=== PATIENT | male | born 1955 | race African-American/Black ===

== ENCOUNTER → 2019-11-14 | Day surgery (SDC) | payer MEDICARE, MEDICAID ==
[2019-11-11 09:42] LABS: BASOPHILS % (AUTO) 2.9 % (0.0-2.0); EOSINOPHILS % (AUTO) 3.3 % (0.0-3.0); HEMATOCRIT 45.7 % (42.0-52.0); HEMOGLOBIN 14.6 G/DL (14.2-18.0); LYMPHOCYTES % (AUTO) 36.8 % (20.0-45.0); MEAN CORPUSCULAR VOLUME 88 FL (80-99); MONOCYTES % (AUTO) 7.6 % (1.0-10.0); NEUTROPHILS % (AUTO) 49.4 % (45.0-75.0); PLATELET COUNT 340 K/UL (150-450); RED BLOOD COUNT 5.17 M/UL (4.70-6.10); RED CELL DISTRIBUTION WIDTH 12.7 % (11.6-14.8); WHITE BLOOD COUNT 4.2 K/UL (4.8-10.8)
[2019-11-11 09:54] LABS: ANION GAP 5 mmol/L (5-15); BLOOD UREA NITROGEN 14 mg/dL (7-18); CALCIUM 9.3 MG/DL (8.5-10.1); CARBON DIOXIDE 32 MMOL/L (21-32); CHLORIDE 107 MMOL/L (98-107); POTASSIUM 4.5 MMOL/L (3.5-5.1); SODIUM 143 MMOL/L (136-145)
[2019-11-11 10:10] LABS: INR 0.9 (0.9-1.1)
--- NOTE | 2019-11-11 10:53 | Opthalmology H&P ---
Ophthalmology H&P H&P Chief Complaint: decreased vision in right eye HPI Vision Affects Ability to: read, manage personal affairs Past Ocular History: retinal problems - Retinal lesion OU,, other - Optic atrophy OU HPI Narrative Blurry vision Exam Visual Acuity: OD 20/125 OS Counting fingers Tension: OD 17 OS 20 Eye Exam: normal OU: external exam, palpebral fissure-width, marginal reflex distance, levator function, corneas, anterior chambers; findings: lens - NS Cataracts OU, fundus exam - Retinal lesions OU, Assessment/Plan Treatment Plan: cataract extraction w/ lens implant Goals of Treatment: improvement of vision, enhance quality of life - r Attestation Attestation The risks and benefits of the surgery as well as alternative procedures were explained to the patient in detail. aBo Carbajal MD Nov 11, 2019 10:53
--- NOTE | 2019-11-11 10:55 | Pre-Procedure Note/Attestation ---
Pre-Procedure Note/Attestation Complete Prior to Procedure Planned Procedure: right Procedure Narrative: Cataract extraction with IOL implant right eye Indications for Procedure Pre-Operative Diagnosis: Nuclear sclerotic cataract right eye Attestation I attest that I discussed the nature of the procedure; its benefits; risks and complications; and alternatives (and the risks and benefits of such alternatives ), prior to the procedure, with the patient (or the patient's legal branch sales and service representative). I attest that, if there was a reasonable possibility of needing a blood transfusion, the patient (or the patient's legal branch sales and service representative) was given the [facility] standardized written summary, pursuant to the [place] Blood Safety Act ([place] Health and Safety Code # 1645, as amended). I attest that I re-evaluated the patient just prior to the surgery and that there has been no change in the patient's H&P, except as documented below: Bao Carbajal MD Nov 11, 2019 10:55
--- NOTE | 2019-11-11 16:59 | Pre-op HX & Phy Repo 2 SIG ---
DATE OF ADMISSION: 11/20/2019 PRESURGICAL INTERNAL MEDICINE HISTORY AND PHYSICAL DATE OF EVALUATION: 11/11/2019. The patient was referred by Dr. Bao Carbajal. REASON FOR EVALUATION: The patient has nuclear sclerotic cataract, right eye. Please see full Ophthalmology History and Physical by Dr. Bao Carbajal. The patient was seen at [facility] outpatient procedure department and the surgery scheduled for November 14, 2019. PAST MEDICAL HISTORY AND REVIEW OF SYSTEMS: Remarkable for valley fever and left knee arthritis. No history of hypertension. Denies history of diabetes. No respiratory problem. Denies history of heart attack or stroke. Denies history of renal insufficiency. No anemia. No thyroid problem. SURGICAL HISTORY: None. FAMILY HISTORY: Parents of old age. ALLERGIES: Not known. PRESENT MEDICATIONS: Include fluconazole 100 mg twice a day. HABITS: The patient smokes 2 to 3 cigarettes a day. Alcohol occasionally. No street drugs. PHYSICAL EXAMINATION: GENERAL: Alert, well-developed, well-nourished male, in his 60s. HEENT: Head, normocephalic, atraumatic. Ears, clear. Eyes, full description per Dr. Bao Carbajal. SKIN: Warm and clear. No rashes. LYMPHATICS: Lymph nodes not enlarged. NECK: Supple. No jugular venous distention. Carotids artery +2. Trachea midline. CHEST: No deformity or asymmetry. No murmur. No S3, S4. LUNGS: Clear to auscultation and percussion. No rales or rhonchi. ABDOMEN: Soft, benign. No palpable mass. No rebound. EXTREMITIES: Left knee arthritis. The patient uses a cane to ambulate. GENITOURINARY TRACT: No dysuria. No CVA tenderness. NERVOUS SYSTEM: No tremor. No nystagmus. DIAGNOSTIC DATA: ECG, ventricular rate 46 beats per minute, unusual P axis, possible ectopic atrial bradycardia, right ventricular hypertrophy, lateral infarction old. ST-T wave abnormality, consider ischemia. LABORATORY RESULTS: White blood cells 4.2, hemoglobin 14.6, hematocrit 45.7. Sodium 143, potassium 4.5, chloride 107, BUN 14, creatinine 1.0, GFR more than 60, calcium 9.3, glucose random 95. IMPRESSION: 1. Nuclear sclerotic cataract, right eye. 2. Valley fever. 3. Left knee arthritis. PLAN: Cataract extraction right eye with intraocular lens implant per Dr. Bao Carbajal. CONCLUSION: The patient is a 64-year-old male, has history of valley fever and arthritis of the left knee. The patient has EKG changes. The patient has questionable bradycardia and . The patient is asymptomatic. This patient's condition optimized for surgery. The patient is advised to be NPO prior to surgery. Thank you very much, Dr. Carbajal, for privilege to participate in presurgical care of this interesting patient. Shanita Shaffer M.D. DR: VIRAL JOB#: [id number] CC:
[~2019-11-14] VITALS: Ht 182.9 cm; Wt 83.9 kg
[2019-11-14] VITALS (8 sets, daily range): BP systolic 115–133; BP diastolic 73–95
[~2019-11-14] MED LIST: Akten 3.5% 1ml Btl RIGHT EYE ONE; BSS 15ml BTL ONE; BSS 500ml btl ONE; Carbachol 0.01% Op Soln 1.5ml vial ONE; DiphenhydrAMINE 50mg/ml Inj IVP PRN; FLUCONAZOLE100 MG ORAL; LR 1000ml 1,000 ML IVLG SCH; LR 1000ml ONE; Lidocaine 1% MPF 10mg/ml 5ml ONE; Midazolam 2mg/2ml Inj ONE; NS Irrig 1000ml ONE; Povidone-Iodine 5% opth solution ONE; Proparacaine 0.5% Opth Soln 15ml RIGHT EYE ONE; Sodium Hyaluronate 10 mg/ml 0.85ml ONE; Sterile Water Irrig 1000ml IRRIG ONE; Tetracaine 0.5% Opth 4ml Soln RIGHT EYE ONE; fentaNYL 100 mcg/2 mL IV ONE
[2019-11-14] MEDS: Tobramycin Op Soln 0.3% 5ml RIGHT EYE SCH ×3 (07:13→07:32)
[2019-11-14] MEDS: Phenylephrine 10% Opth Soln 5ml RIGHT EYE SCH ×3 (07:13→07:32)
[2019-11-14] MEDS: Tropicamide 1% Opth 15ml Soln RIGHT EYE SCH ×3 (07:13→07:32)
[2019-11-14] MEDS: Cyclopentolate 1% Opth Sol 2ml RIGHT EYE SCH ×3 (07:13→07:32)
[2019-11-14] MEDS: Diclofenac Sod 0.1% Op Soln RIGHT EYE SCH ×3 (07:13→07:32)
--- NOTE | 2019-11-14 07:36 | Anethesia Preoperative Eval ---
Anesthesia Pre-op PMH/ROS General Date of Evaluation: Nov 14, 2019 Anesthesiologist: Jb ASA Score: ASA 2 Mallampati Score Class I : Soft palate, uvula, fauces, pillars visible Class II: Soft palate, uvula, fauces visible Class III: Soft palate, base of uvula visible Class IV: Only hard plate visible Mallampati Classification: Class III Surgeon: Raven Diagnosis: Right cataract Surgical Procedure: Right cataract extraction with IOL Anesthesia History: none Family History: no anesthesia problems Allergies: Coded Allergies: No Known Allergies (Unverified , 11/10/19) Medications: see eMAR Patient NPO?: Yes NPO Date: Nov 14, 2019 NPO Time: 00:00 Past Medical History Cardiovascular: Denies: HTN, CAD, [place], valve dz, arrhythmia, other Pulmonary: Denies: asthma, COPD, JOSE, other Gastrointestinal/Genitourinary: Denies: GERD, CRI, ESRD, other Neurologic/Psychiatric: Reports: depression/anxiety; Denies: dementia, CVA, TIA, other Endocrine: Denies: DM, hypothyroidism, steroids, other HEENT: Reports: cataract (R); Denies: cataract (L), glaucoma, TEJON (L), TEJON (R), other Hematology/Immune: Denies: anemia, DVT, bleeding disorder, other Musculoskeletal/Integumentary: Reports: OA; Denies: RA, DJD, DDD, edema, other PSxH Narrative: Right knee sx, jaw sx Anesthesia Pre-op Phys. Exam Physician Exam Last Vital Signs Date Time Temp Pulse Resp B/P (MAP) Pulse Ox O2 Delivery O2 Flow Rate FiO2 11/14/19 07:30 97.7 60 20 133/95 98 Room Air Constitutional: NAD Cardiovascular: RRR Respiratory: CTA Airway Exam Mallampati Score: Class III MO: limited ROM: limited Anesthesia Pre-op A/P Labs see chart Studies Pre-op Studies: EKG - sr Risk Assessment & Plan Assessment: ASA II Plan: MAC Status Change Before Surgery: No Pre-Antibiotics Drug: N/A Keya Muhammad MD Nov 14, 2019 07:36
--- NOTE | 2019-11-14 09:29 | Immediate Post-Op Evaluation ---
Immediate Post-Op Evalulation Immediate Post-Op Evalulation Procedure: Right cataract extraction with IOL Date of Evaluation: Nov 14, 2019 Time of Evaluation: 09:31 IV Fluids: 100 Blood Products: 0 Estimated Blood Loss: 0 Urinary Output: 0 Blood Pressure Systolic: 128 Blood Pressure Diastolic: 86 Pulse Rate: 66 Respiratory Rate: 16 O2 Sat by Pulse Oximetry: 98 Temperature (Fahrenheit): 97.6 Pain Score (1-10): 0 Nausea: No Vomiting: No Complications 0 Patient Status: awake, reacts, patent, none Hydration Status: adequate Drug: N/a Keya Muhammad MD Nov 14, 2019 09:29
--- NOTE | 2019-11-14 09:30 | 48 Hour Post Anesthesia Eval ---
Post Anesthesia Evaluation Procedure: Right cataract extraction with IOL Date of Evaluation: Nov 14, 2019 Airway: patent Nausea: No Vomiting: No Hydration Status: adequate Cardiopulmonary Status: at baseline Mental Status/LOC: patient returned to baseline Post-Anesthesia Complications: 0 Follow-up care needed: ready to discharge Keya Muhammad MD Nov 14, 2019 09:30
--- NOTE | 2019-11-14 16:38 | Brief Operative Note ---
Immediate Post Operative Note Operative Note Chief Complaint: Blurry vision Pre-op Diagnosis: Nuclear sclerotic cataract right eye Procedure: Cataract extraction with IOL implant right eye Post-op Diagnosis: Pseudo OS Findings: consistent w/pre-op dx studies Surgeon: Bao Carbajal MD Anesthesiologist: Keya Muhammad MD Anesthesia: MAC Specimen: none Complications: none Condition: stable Fluids: LR Estimated Blood Loss: none Drains: none Implant(s) used?: Yes - IOL-OD Bao Carbajal MD Nov 14, 2019 16:37
--- NOTE | 2019-11-14 16:41 | Operative Note - PDOC ---
Operative Note Operative Note Date of Operation/Procedure: Nov 14, 2019 Chief Complaint: Blurry vision Pre-op Diagnosis: Nuclear sclerotic cataract right eye Procedure: Cataract extraction with IOL implant right eye Post-op Diagnosis: Pseudo OS Operative Findings: consistent w/pre-op dx studies Surgeon: Bao Carbajal MD Anesthesiologist: Keya Muhammad MD Anesthesia: MAC Specimen: none Complications: none Condition: stable Fluids: LR Estimated Blood Loss: none Drains: none Implant(s) used?: Yes - IOL-OD Indications for Procedure Nuclear sclerotic cataract right eye Description of Procedure This patient has been complaining visually significant cataract in the right eye with the best corrected visual acuity of 20/125 under moderate glare conditions worse. The patient complains of difficulties with glare in performing activities of daily living and wants to manage personal affairs with comfort and accuracy and see well enough to move with safety at home and outdoors. The risks, benefits and alternatives of the procedure were discussed with the patient in the office prior to scheduling surgery. All questions from the patient were answered after the surgical procedure was explained in detail. The risks of the procedure as explained to the patient include, but are not limited to, pain, infection, bleeding, loss of vision, retinal detachment, need for further surgery, loss of lens nucleus, double vision, etc. Alternative procedures were discussed which include, to do nothing or seek a second opinion. Informed consent for this procedure was obtained from the patient. The patient was referred to a primary care physician for a cardiopulmonary clearance prior to surgery, after proper evaluation was done patient was properly scheduled for outpatient surgery. The patient was brought to the operating room where the anesthesiologist established I.V. lines and cardiac monitoring leads. Mild intravenous sedation was administered. The patient was then prepared with a 5% solution of povidone -iodine to the conjunctival fornix and lashes, and a 5% solution of povidone- iodine to the lids and periorbital skin. The patient was then draped in the usual sterile fashion. A lid speculum was then placed in the operative eye. A keratome blade was then used to create a biplanar incision into the anterior chamber. Viscoelastics was then instilled into the anterior chamber. A capsulorrhexis was then fashioned with an utrata forceps. BSS and a cannula were then used to hydrodissect and hydro delineate the lens. Paracentesis incision was made at 3 o'clock with sharp blade. The phacoemulsification unit, after being properly adjusted and tested, was then used to emulsify the nucleus. Residual cortical material was aspirated with the irrigation and aspiration unit. Healon was then instilled into the anterior chamber. The corneal wound was then enlarged to the size of the optic with the torey keratome blade. The intraocular lens was then inspected for right power and size and thought to be satisfactory. Then the lens was gently placed in the capsular bag. Positioning within the capsular bag was confirmed by direct visualization. Optic centration was accomplished with a Sinskey hook. Viscoelastics was removed from the anterior chamber using the irrigation and aspiration unit. The corneal wound was then tested for leaks and none were found. The lid speculum were then removed. Sponge and needle counts were correct. An eye patch and shield were placed over the operative eye. The patient was taken to the recovery room in stable condition. There were no complications. The patient tolerated the procedure well. The patient was then transferred to the ambulatory surgery unit in stable and satisfactory condition , was given detailed written instructions and asked to follow up in the office the next day. Bao Carbajal MD Nov 14, 2019 16:41
--- NOTE | 2019-11-16 22:06 | Cardiology Report ---
APPROVED REPORT EKG Measurement Heart [id number] <Conclusion> Suspect arm lead reversal, interpretation assumes no reversal Unusual P axis, possible ectopic atrial bradycardia Right ventricular hypertrophy Lateral infarct, age undetermined ST & T wave abnormality, consider anterior ischemia Abnormal ECG
== END | disposition home or self-care (01) ==
LOC: SUR 05:53
DX: H25.11 Age-related nuclear cataract, right eye (principal); M17.12 Unilateral primary osteoarthritis, left knee; F17.210 Nicotine dependence, cigarettes, uncomplicated; B38.0 Acute pulmonary coccidioidomycosis; F32.9 Major depressive disorder, single episode, unspecified; F41.9 Anxiety disorder, unspecified
CPT/HCPCS: 36415; 66984; 80048; 85025; 85610; 85730; 93005; 94003; J2250; J3010; J3370; J7120; U0002; V2632; 94150